=== PATIENT | born 1960 | race Caucasian/White ===

== ENCOUNTER 2023-10-17 10:04 | Outpatient (CLI) | payer OTHER, SELFPAY ==
--- NOTE | 2023-10-17 10:21 | XR_ITS ---
WS: [id number] Right hip, 2 views, AP pelvis, 10/17/2023 Clinical Data: PAIN IN R HIP Comparison: None. Findings: No fractures or dislocations are seen. The right hip shows no erosion, sclerosis, narrowing or fragme ntation of the right femoral head. There is a small right acetabular lip. The left hip shows a small acetabular lip. The soft tissues are not remarkable. The adjacent pelvis is normal. XR/XR hip RT 2-3V wo/w pel* [id number] Impression: Minimal osteoarthritis of the right hip with acetabular lipping. Tonnis classification: grade 1: sclerosis of femoral head and acetabulum or sli ght joint space narrowing or slight lipping at joint margins of both hips
== END 2023-10-17 10:05 | disposition home or self-care (01) ==
LOC: RAD 10:12
PROVIDERS: Visit Provider Nurse Practitioner Family
DX: M25.551 Pain in right hip (principal)
CPT/HCPCS: 73502

== ENCOUNTER 2023-10-28 06:59 | Outpatient (CLI) | payer OTHER, SELFPAY ==
--- NOTE | 2023-10-28 07:02 | US_ITS ---
WS: [id number] Complete ABDOMINAL ULTRASOUND HISTORY: Unspecified Abdominal Pain COMPARISON: None available. Liver: 18.0 cm in length. Liver is enlarged with coarse echotexture from hepatic steatosis. No mass o r bile duct dilatation. Portal Vein: Normal hepatopetal flow with monophasic waveform. Gallbladder: Abnormal gallbladder. Gallbladder is filled with stones with shadowing. No lumen or bile identified. There is diffuse mild wall thickening with no pericholecystic fluid. CBD: 0.5 cm Pancreas: Unremarkable as visualized. Right kidney: 10.3 cm x 6.2 x 5.2 cm. Cortex:1.2 cm. Normal size and echogenicity. No hydronephrosis or mass. Left kidney: 10.6 cm x 5.2 cm x 6.4 cm. Cortex: 1.1 cm. Normal size and echogenicity. No hydronephrosis or mass. Spleen: 11.0 cm. Normal size and echogenicity. Aorta and IVC: Unremarkable abdominal aorta and IVC. US/US abdomen complete* [id number] Impression: 1. Cholelithiasis without evidence for acute cholecystitis. Gallbladder is sto ne filled and contracted around the stones. No bile duct dilatation or evidence for acute cholecystitis. 2. Mild hepatic steatosis and hepatomegaly. 3. No renal obstruction.
== END 2023-10-28 07:00 | disposition home or self-care (01) ==
PROVIDERS: Visit Provider Nurse Practitioner Family
DX: K80.20 Calculus of gallbladder without cholecystitis without obstruction (principal); R10.9 Unspecified abdominal pain
CPT/HCPCS: 76700

== ENCOUNTER 2023-10-31 10:50 | Day surgery (SDC) | payer OTHER, SELFPAY ==
[2023-10-31 11:28] VITALS: BP 161/94; PULSE 94; RESP 17; TEMP 36.1; O2SAT 93; BMI 38.7
[2023-10-31] MEDS: sodium chloride 0.9% 1,000 ML 30 ML IV (11:32)
--- NOTE | 2023-10-31 12:16 | ANES.PREANE2 ---
Pre-Anesthetic Assessment Height/Weight: Height 1.65 m Weight 105.687 kg Temp Pulse Resp BP Pulse Ox O2 Del Method 97.0 F 94 17 161/94 93 Room Air 10/31/23 11:28 10/31/23 11:28 10/31/23 11:28 10/31/23 11:28 10/31/23 11:28 10/31/23 11:28 Operation Date: 10/31/23 12:00 Proposed Procedures p EGD 20655, 85790, G0105, K21.9, Z12.11(Not Applicable) - Marcus Monge DO s Colonoscopy(Not Applicable) - Marcus Monge DO Familial anesthetic complications: none Was Beta Lindsey taken within 24 hours: N/A Was Clonidine taken within 24 hours: N/A Last intake: Intake Last Liquid Date 10/30/23 Last Liquid Time 23:30 Last Solid Date 10/30/23 Last Solid Time 21:00 Social No alcohol and No tobacco Exam alert, oriented x 3, clear to auscultation bilaterally and regular rate & rhythm Airway Mallampati: Class I Dentition: full GI Gastroesophageal Reflux Disease Anesthetic Plan ASA status: 2 Anesthesia: MAC Risk of > 500 ml blood loss (7ml/kg in children): No Medications/Allergies Home Medications Medication Instructions Recorded Confirmed Last Taken Type pantoprazole 40 mg tablet,delayed 40 mg PO BID 6 weeks #84 tabs 10/24/23 10/29/23 10/29/23 Rx release (Protonix) Allergies Allergy/AdvReac Type Severity Reaction Status Date / Time milk Allergy lump in Verified 10/29/23 12:09 her throat Current Medications Generic Name Dose Route Start Last Admin Trade Name Yoli PRN Reason Stop Dose Admin Sodium Chloride 1,000 mls @ 30 mls/hr 10/31/23 11:30 10/31/23 11:32 Sodium Chloride 0.9% IV 11/01/23 11:29 30 mls/hr .Q24H DIAZ Administration PFSH Anesthesia Family History Mother Cancer unknown what kind Diabetes Heart disease Father Heart attack Social History Smoking and tobacco/nicotine status: never used tobacco/nicotine Alcohol intake: never Substance/Drug Use: never Data Anesthesia Cardiac Studies: No Data to Display
--- NOTE | 2023-10-31 13:19 | W.PM.OPSUD ---
Surgery/Procedure H&P Update DATE OF PROCEDURE: October 31, 2023 DATE H&P PERFORMED: 10/24/23 H&P UPDATE INFORMATION: I have reviewed H&P completed within last 30 days, I have examined patient prior to procedure and No changes to prior documentation PLANNED PROCEDURE: Operation Date: 10/31/23 12:00 Proposed Procedures p EGD 10455, 91882, G0105, K21.9, Z12.11(Not Applicable) - DO chuyita Aldridge Colonoscopy(Not Applicable) - Marcus Monge DO
[2023-10-31] MEDS: EPINEPHrine 1 mg/mL INJ XX (13:37)
[2023-10-31 13:59] VITALS: BP 159/71; PULSE 89; RESP 14; TEMP 36.1; O2SAT 96
[2023-10-31 14:29] VITALS: BP 151/61; PULSE 76; RESP 16; O2SAT 96
--- NOTE | 2023-10-31 14:45 | ANE.PACU2 ---
Inpatient post-anesthesia follow up: Airway intact: Yes Vital signs: Temperature 97.0 F Pulse Rate 76 Respiratory Rate 16 Blood Pressure 151/61 Pulse Oximetry 96 Oxygen Delivery Me thod Room Air Oxygen Flow Rate Fraction of Inspir ed Oxygen Hydration adequate: Yes Nausea and vomiting: No Pain level: 1 Mental status: Baseline
== END 2023-10-31 14:46 | disposition home or self-care (01) ==
PROVIDERS: PCP Nurse Practitioner Family; Visit Provider Surgery
PROC: 0DJ08ZZ Inspection of Upper Intestinal Tract, Via Natural or Artificial Opening Endoscopic (ICD-10-PCS; CPT 43235; principal; 2023-10-31 12:00)
PROC: 0DJD8ZZ Inspection of Lower Intestinal Tract, Via Natural or Artificial Opening Endoscopic (ICD-10-PCS; CPT 45378; 2023-10-31 12:00)
DX: Z12.11 Encounter for screening for malignant neoplasm of colon (principal); K21.00 Gastro-esophageal reflux disease with esophagitis, without bleeding; K57.30 Diverticulosis of large intestine without perforation or abscess without bleeding; K64.8 Other hemorrhoids; K63.5 Polyp of colon; K29.80 Duodenitis without bleeding; Z80.0 Family history of malignant neoplasm of digestive organs
CPT/HCPCS: 43239; 45385; 88305; J0171; J2704; J7030